=== PATIENT | male | born 1975 | race Caucasian/White ===

== ENCOUNTER 2020-05-02 19:34 | Emergency (ER) | payer SELFPAY ==
[~2020-05-02] VITALS: Ht 182.9 cm; Wt 81.3 kg
[2020-05-02] MEDS ORDERED: KETOROLAC 60 MG/2 ML VIAL. IM ONE (23:45)
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
[2020-05-03 00:51] VITALS: BP 108/51
== END 2020-05-03 01:03 | disposition home or self-care (01) ==
LOC: ER 19:34
DX: L84 Corns and callosities (principal); Z59.0 Homelessness; F17.200 Nicotine dependence, unspecified, uncomplicated; F10.20 Alcohol dependence, uncomplicated; Y90.9 Presence of alcohol in blood, level not specified
CPT/HCPCS: 96372; 99285; J1885; 99282; 99283

== ENCOUNTER 2020-05-04 23:55 | Emergency (ER) | payer SELFPAY ==
[~2020-05-04] VITALS: Ht 182.9 cm; Wt 80.9 kg
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
[2020-05-05] MEDS ORDERED: IBUPROFEN 400 MG TABLET. PO ONE (00:30)
[2020-05-05] MEDS ORDERED: ACETAMINOPHEN 325 MG TABLET. PO ONE (01:00)
[2020-05-05 01:03] LABS: AMPHETAMINE/METHAMPHETAMINE NEG (NEG); BARBITURATES NEG (NEG); BENZODIAZEPINES NEG (NEG); CANNABINOIDS NEG (NEG); COCAINE NEG (NEG); METHADONE NEG (NEG); OPIATES NEG (NEG); PHENCYCLIDINE NEG (NEG)
[2020-05-05 01:07] LABS: BASO % 1 % (0-3); EOS # 0.1 x10^3/uL (0.0-0.7); EOS % 1 % (0-3); HEMATOCRIT 39.9 % (39.0-53.0); HEMOGLOBIN 13.5 g/dL (13.0-17.5); LYMPH # 1.8 x10^3/uL (1.0-4.8); LYMPH % 17 % (24-48); MEAN CORPUSCULAR HEMOGLOBIN 33 pg (25-35); MEAN CORPUSCULAR HGB CONC 34 g/dL (31-37); MEAN CORPUSCULAR VOLUME 98 fL (79-100); MONO # 0.6 x10^3/uL (0.0-1.1); MONO % 6 % (0-9); NEUT # 8.1 x10^3/uL (1.8-7.7); NEUT % 76 % (31-73); PLATELET COUNT 188 x10^3/uL (140-400); RED BLOOD COUNT 4.06 x10^6/uL (4.30-5.70); RED CELL DISTRIBUTION WIDTH 14.4 % (11.5-14.5); WHITE BLOOD COUNT 10.7 x10^3/uL (4.0-11.0)
[2020-05-05 01:19] LABS: CALCIUM 8.8 mg/dL (8.5-10.1); CREATININE 0.7 mg/dL (0.7-1.3); GFR 123.7; POTASSIUM 4.1 mmol/L (3.5-5.1)
[2020-05-05] MEDS ORDERED: KETOROLAC 15 MG/ML VIAL. IM ONE (03:00)
[2020-05-05 03:45] VITALS: BP 118/58
== END 2020-05-05 03:56 | disposition home or self-care (01) ==
LOC: ER 23:55
DX: G89.29 Other chronic pain (principal); M79.671 Pain in right foot; Z20.828 Contact with and (suspected) exposure to other viral communicable diseases; J02.9 Acute pharyngitis, unspecified; R05 Cough; R19.7 Diarrhea, unspecified; R09.89 Other specified symptoms and signs involving the circulatory and respiratory systems; F17.200 Nicotine dependence, unspecified, uncomplicated; F10.10 Alcohol abuse, uncomplicated; Z98.890 Other specified postprocedural states
CPT/HCPCS: 36415; 80048; 80307; 85025; 87426; 96372; 99285; J1885; U0003

== ENCOUNTER 2020-05-17 19:44 | Emergency (ER) | payer SELFPAY ==
[~2020-05-17] VITALS: Ht 175.3 cm; Wt 72.7 kg
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
[2020-05-17 21:20] VITALS: BP 158/103
[2020-05-17] MEDS: ACETAMINOPHEN 500 MG TABLET PO ONE (21:30)
[2020-05-17] MEDS ORDERED: IBUPROFEN 400 MG TABLET. PO ONE (21:30)
[2020-05-17] MEDS: KETOROLAC 30 MG/ML VIAL. IM ONE (21:30)
--- NOTE | 2020-05-17 21:39 | RAD ---
Exam: Right foot 3 views INDICATION: Toe pain TECHNIQUE: Frontal, lateral and oblique views of the right foot Comparisons: None FINDINGS: There is dislocation at the second digit MTP. Diffuse soft tissue swelling is noted. Bone mineralizat ion is normal. No acute or healed fractures are identified. IMPRESSION: Dislocation of the second digit MTP joint. Electronically signed by: Christie Abraham MD (05/17/2020 9:37 PM) THUAN
[2020-05-18] MEDS ORDERED: AZIT500T4 PO (01:07)
== END 2020-05-17 21:51 | disposition home or self-care (01) ==
LOC: ER 19:44
DX: R51.9 Headache, unspecified (principal); M79.671 Pain in right foot; F17.200 Nicotine dependence, unspecified, uncomplicated; F10.20 Alcohol dependence, uncomplicated; Y90.9 Presence of alcohol in blood, level not specified
CPT/HCPCS: 73630; 96372; 99283; J1885

== ENCOUNTER 2020-05-17 23:25 | Emergency (ER) | payer SELFPAY ==
[~2020-05-17] VITALS: Ht 177.8 cm; Wt 73.0 kg
[2020-05-17 23:30] VITALS: BP 161/90
--- NOTE | 2020-05-17 23:58 | RAD ---
XR CHEST 1V 05/17/2020 11:50 PM INDICATION: Shortness of breath COMPARISON: None available TECHNIQUE: Portable frontal view of the chest is provided. FINDINGS: The cardiomediastinal silhouette is within normal limits. Bilateral hilar prominence could reflect pr ominent pulmonary vasculature versus lymphadenopathy. There is mild interstitial prominence in the pe rihilar distribution as may be seen with interstitial pneumonitis versus interstitial edema. There are no significant pleural effusions. There is no pulmonary vascular congestion. No pneumothora x. No suspicious osseous abnormality. IMPRESSION: 1. Bilateral hilar prominence may reflect prominent pulmonary vasculature versus lymphadenopathy. 2. Mild interstitial prominence in the perihilar distribution may be seen with interstitial pneumoni tis versus interstitial edema. No significant pleural effusions. Electronically signed by: Neena Nelson MD (05/17/2020 11:55 PM) AR[place]
[2020-05-18 00:05] LABS: BARBITURATES NEG (NEG); BENZODIAZEPINES NEG (NEG); CANNABINOIDS NEG (NEG); COCAINE NEG (NEG); METHADONE NEG (NEG); OPIATES NEG (NEG); PHENCYCLIDINE NEG (NEG)
[2020-05-18 00:06] LABS: AMPHETAMINE/METHAMPHETAMINE NEG (NEG)
--- NOTE | 2020-05-18 00:51 | PHYS DOC ---
Past Medical History Past Medical History: Abscess Past Surgical History: Other Additional Past Surgical Histo: hernia Smoking Status: Current Every Day Smoker Alcohol Use: Heavy Adult General Chief Complaint Chief Complaint: COUGH HPI HPI Patient is a 45 year old male with no known past medical history return to the emergency department after his initial visit for his headache now stating that he is having new onset of cough. Patient is very concerned that he is having COVID-19 symptoms. Patient states that he has been diagnosed with COVID-19 5 times so far this year. States is very mild intermittent nonproductive cough and a sensation of shortness of breath. Denies any fever, chills, chest pain, dizziness or lightheadedness Review of Systems Review of Systems Constitutional: Denies fever or chills [] Eyes: Denies change in visual acuity, redness, or eye pain [] HENT: Denies nasal congestion or sore throat [] Respiratory: Denies cough or shortness of breath [] Cardiovascular: No additional information not addressed in HPI [] GI: Denies abdominal pain, nausea, vomiting, bloody stools or diarrhea [] : Denies dysuria or hematuria [] Musculoskeletal: Denies back pain or joint pain [] Integument: Denies rash or skin lesions [] Neurologic: Denies headache, focal weakness or sensory changes [] Endocrine: Denies polyuria or polydipsia [] All other systems were reviewed and found to be within normal limits, except as documented in this note. Allergies Allergies Allergies Coded Allergies Type Severity Reaction Last Updated Verified No Known Drug Allergies 05/02/20 No Physical Exam Physical Exam Constitutional: Well developed, well nourished, no acute distress, non-toxic appearance. [] HENT: Normocephalic, atraumatic, bilateral external ears normal, oropharynx moist, no oral exudates, nose normal. [] Eyes: PERRLA, EOMI, conjunctiva normal, no discharge. [] Neck: Normal range of motion, no tenderness, supple, no stridor. [] Cardiovascular:Heart rate regular rhythm, no murmur [] Lungs & Thorax: Bilateral breath sounds clear to auscultation [] Abdomen: Bowel sounds normal, soft, no tenderness, no masses, no pulsatile masses. [] Skin: Warm, dry, no erythema, no rash. [] Back: No tenderness, no CVA tenderness. [] Extremities: No tenderness, no cyanosis, no clubbing, ROM intact, no edema. [] Neurologic: Alert and oriented X 3, normal motor function, normal sensory function, no focal deficits noted. [] Psychologic: Affect normal, judgement normal, mood normal. [] Current Patient Data Lab Values Laboratory Tests Test 05/17/20 23:45 Urine Opiates Screen Neg (NEG) Urine Methadone Screen Neg (NEG) Urine Barbiturates Neg (NEG) Urine Phencyclidine Screen Neg (NEG) Urine Amphetamine/Methamphetamine Neg (NEG) Urine Benzodiazepines Screen Neg (NEG) Urine Cocaine Screen Neg (NEG) Urine Cannabinoids Screen Neg (NEG) Urine Ethyl Alcohol Neg (NEG) EKG EKG [] Radiology/Procedures Radiology/Procedures XR CHEST 1V 05/17/2020 11:50 PM INDICATION: Shortness of breath COMPARISON: None available TECHNIQUE: Portable frontal view of the chest is provided. FINDINGS: The cardiomediastinal silhouette is within normal limits. Bilateral hilar prominence could reflect prominent pulmonary vasculature versus lymphadenopathy. There is mild interstitial prominence in the perihilar distribution as may be seen with interstitial pneumonitis versus interstitial edema. There are no significant pleural effusions. There is no pulmonary vascular congestion. No pneumothorax. No suspicious osseous abnormality. IMPRESSION: 1. Bilateral hilar prominence may reflect prominent pulmonary vasculature versus lymphadenopathy. 2. Mild interstitial prominence in the perihilar distribution may be seen with interstitial pneumonitis versus interstitial edema. No significant pleural effusions. Electronically signed by: Neena Nelson MD (05/17/2020 11:55 PM) [facility] Course & Med Decision Making Course & Med Decision Making Pertinent Labs and Imaging studies reviewed. (See chart for details) 45-year-old man acting mildly erratically bizarrely but also does complain of cough shortness of breath and states that he was recently tested positive for Covid. Will obtain an x-ray to make sure there is no significant findings and will obtain a urine drug screen. 0102 -x-ray does show some mild infiltrates with the patient's oxygenation is wi thin normal limits. Urine drug changes negative. Patient appears alert and oriented x3 and does appear to have the ability to make decisions and care for himself at this time. Will discharge as patient is under the care of [facility] staying at the local [facility] Dragon Disclaimer Star Disclaimer This electronic medical record was generated, in whole or in part, using a voice recognition dictation system. Departure Departure Impression: Primary Impression: COVID-19 Disposition: 01 DC HOME SELF CARE/HOMELESS Condition: GOOD Referrals: NO PCP (PCP) Patient Instructions: Viral Syndrome Additional Instructions: EMERGENCY DEPARTMENT GENERAL DISCHARGE INSTRUCTIONS Thank you for coming to [facility] Emergency Department (ED) today and trusting us with you care. We trust that you had a positive experience in our Emergency Department. If you wish to speak to the department management, you may call the Director at [phone]. YOUR FOLLOW UP INSTRUCTIONS ARE FOLLOWS: 1. Do you have a private Doctor? If you do not have a private doctor, please ask for a resource list of physicians or clinics that may be able to assist you with follow up care. 2. The Emergency Physicain has interpreted your x-rays. The X-Ray specialist will also review them. If there is a change in the findings, you will be notified in 48 hours when at all possible. 3. A lab test or culture has been done, your results will be reviewed and you will be notified if you need a change in treatment. ADDITIONAL INSTRUCTIONS AND INFORMATION: 1. Your care today has been supervised by a physician who is specially trained in emergency care. Many problems require more than one evaluation for a complete diagnosis and treatment. We recommend that you schedule your follow up appointment as recommended to ensure complete treatment of you illness or injury. If you are unable to obtain follow up care and continue to have a problem, or if your condition worsens, we recommend that you return to the ED. 2. We are not able to safely determine your condition over the phone nor are we able to give sound medical advice over the phone. For these safety reasons, if you call for medical advice we will ask you to come to the ED for further evaluation. 3. If you have any questions regarding these discharge instructions please call the ED at [phone]. SAFETY INFORMATION: In the interest of safety, wellness, and injury prevention; we encourage you to wear your sealbelt, if you smoke; quite smoking, and we encourage family to use a protective helmet for bicycling and other sporting events that present an increased risk for head injury. IF YOUR SYMPTOMS WORSEN OR NEW SYMPTOMS DEVELOP, OR YOU HAVE CONCERNS ABOUT YOUR CONDITION; OR IF YOUR CONDITION WORSENS WHILE YOU ARE WAITING FOR YOUR FOLLOW UP AP POINTMENT; EITHER CONTACT YOUR PRIMARY CARE DOCTOR, THE PHYSICIAN WHOSE NAME AND NUMBER YOU WERE GIVEN, OR RETURN TO THE ED IMMEDIATELY. Scripts Azithromycin (AZITHROMYCIN TABLET) 500 Mg Tablet 500 MG PO BID for ANTI-BIOTIC for 7 Days, #14 TAB 0 Refills Prov: LORENE OTOOLE MD 05/18/20 LORENE OTOOLE MD May 18, 2020 00:51
[2020-05-18] MEDS ORDERED: AZIT500T4 PO (01:07)
== END 2020-05-18 01:30 | disposition home or self-care (01) ==
LOC: ER 23:25
DX: U07.1 COVID-19 (principal); F17.200 Nicotine dependence, unspecified, uncomplicated; F10.20 Alcohol dependence, uncomplicated; Y90.9 Presence of alcohol in blood, level not specified
CPT/HCPCS: 71045; 80307; 99284

== ENCOUNTER 2020-10-12 07:30 | Emergency (ER) | payer SELFPAY ==
[~2020-10-12] VITALS: Ht 182.9 cm; Wt 78.7 kg
[~2020-10-12 07:30] MED LIST: AZIT500T4 PO
[2020-10-12 07:45] VITALS: BP 131/80
--- NOTE | 2020-10-12 07:49 | PHYS DOC ---
Past Medical History Past Medical History: Abscess Past Surgical History: Other Additional Past Surgical Histo: hernia Smoking Status: Current Every Day Smoker Alcohol Use: Heavy General Adult EDM: Chief Complaint: Callus on Foot HPI: HPI: 45-year-old male presenting with a callus on his right foot and an abrasion on his left foot. His calluses been present for many months. He is using a Band- Aid overlying it which is helped. No alleviating or exacerbating factors otherwise. He denies any fevers chills or rashes. Location feet. Duration constant. No alleviating factors. Review of systems negative for chest pain abdominal pain vomiting diaphoresis fevers chills nuchal rigidity or any rashes. All other review of systems negative. ED course: 45-year-old male presenting complaining of a callus on his foot and an abrasion to his left foot. The left abrasion is clean without any abnormalities. The callus is chronic and without any acute abnormalities. He has a headache that he describes as his usual headache. He describes being primarily here for his feet. He is well-appearing with a normal physical exam. We will discharge the patient to follow-up with outpatient podiatry in 1 to 2 days. The patient has been examined and was not found to have an emergency medical condition. The patient was then discharged home in stable condition to follow up with their primary care physician over the next 1-2 days. They were to return if their symptoms worsened or if they were concerned for any reason. They were also instructed to return to the emergency department if they were unable to get the recommended and appropriate follow-up. [id number] discharge instructions and return precautions were given. Patient's questions were answered to their satisfaction. Patient is comfortable with plan. The patient requested Toradol for his headaches and was given an intramuscular shot of Toradol. Heart Score: C/O Chest Pain: No Risk Factors: Risk Factors: DM, Current or recent (<one month) smoker, HTN, HLP, family history of CAD, obesity. Risk Scores: Score 0 - 3: 2.5% MACE over next 6 weeks - Discharge Home Score 4 - 6: 20.3% MACE over next 6 weeks - Admit for Clinical Observation Score 7 - 10: 72.7% MACE over next 6 weeks - Early Invasive Strategies Allergies: Allergies: Allergies Coded Allergies Type Severity Reaction Last Updated Verified No Known Drug Allergies 05/02/20 No Physical Exam: PE: Constitutional: Well developed, well nourished, no acute distress, non-toxic appearance. [] HENT: Normocephalic, atraumatic, bilateral external ears normal, oropharynx moist, no oral exudates, nose normal. [] No nuchal rigidity. Negative Brudzinski sign. Negative Kernig sign. Eyes: PERRLA, EOMI, conjunctiva normal, no discharge. [] Neck: Normal range of motion, no tenderness, supple, no stridor. [] Cardiovascular:Heart rate regular rhythm, no murmur [] Lungs & Thorax: Bilateral breath sounds clear to auscultation [] Abdomen: Bowel sounds normal, soft, no tenderness, no masses, no pulsatile masses. [] Skin: Warm, dry, no erythema, no rash. [] Back: No tenderness, no CVA tenderness. [] Extremities: No tenderness, no cyanosis, no clubbing, ROM intact, no edema. [] The patient's lower extremities are neurovascular intact with a palpable pulse and 2-second cap refill. He has a small 1 cm abrasion on the medial aspect of his foot. His right foot has a chronic callus on the plantar region. Otherwise unremarkable examination. Ankle and knee are nontender with normal range of motion Neurologic: Alert and oriented X 3, normal motor function, normal sensory function, no focal deficits noted. [] Psychologic: Affect normal, judgement normal, mood normal. Mildly anxious in the examination room. EKG: EKG: [] Radiology/Procedures: Radiology/Procedures: [] Course & Med Decision Making: Course & Med Decision Making Pertinent Labs and Imaging studies reviewed. (See chart for details) [] Dragon Disclaimer: Dragon Disclaimer: This electronic medical record was generated, in whole or in part, using a voice recognition dictation system. Departure Departure Impression: Primary Impression: Callus of foot Disposition: HOME / SELF CARE / HOMELESS Condition: STABLE Referrals: NO PCP (PCP) Patient Instructions: Medical Screening Exam ELSY MILLIGAN MD October 12, 2020 07:49
[2020-10-12] MEDS ORDERED: KETOROLAC 15 MG/ML VIAL. IM ONE (08:00)
== END 2020-10-12 08:05 | disposition home or self-care (01) ==
LOC: ER 07:30
DX: S90.812A Abrasion, left foot, initial encounter (principal); L84 Corns and callosities; R51.9 Headache, unspecified; F17.200 Nicotine dependence, unspecified, uncomplicated; F10.20 Alcohol dependence, uncomplicated; Y90.9 Presence of alcohol in blood, level not specified; X58.XXXA Exposure to other specified factors, initial encounter; Y93.89 Activity, other specified; Y92.89 Other specified places as the place of occurrence of the external cause; Y99.8 Other external cause status
CPT/HCPCS: 96372; 99283; J1885